=== PATIENT | male | born 1970 | race Caucasian/White ===

== ENCOUNTER → 2017-02-03 | Day surgery (SDC) | payer MEDICAID ==
[~2017-02-03] VITALS: Ht 170.2 cm; Wt 70.6 kg
[~2017-02-03] MED LIST: BENADRYL25 MG PO; BENADRYL50 MG PO; BIPAP INH; BUSPAR10 MG PO; CLEOCIN150 MG PO; DELTASONE20 MG PO; DUONEB INH; EFFEXOR XR75 MG PO; EPIPEN0.3 MG IM; FLOMAX0.4 MG PO; HUMULIN R100 UNIT/1 SUB-Q; IMITREX100 MG PO; LANOXIN (DIGI125 MCG PO; LANTUS100 UNIT/1 SUB-Q; NEURONTIN600 MG PO; NORCO 10-325 T1 EACH PO; OXCARBAZEPINE300 MG PO; OXYCONTIN20 MG PO; PERIDEX15 ML PO; PREDNISONE5 MG PO; PRILOSEC20 MG PO; PRINIVIL (ZESTRI5 MG PO; PROVENTIL OR V6.7 GM INH; QUETIAPINE FUM100 MG PO; ULTRAM50 MG PO; XARELTO20 MG PO
--- NOTE | ~2017-02-03 | OR ---
PATIENT'S NAME: ELIAZAR CHRIS [facility] AGE: 46 Y [address] ROOM: [place] [id number] LOCATION: GEND ADMIT DATE: 02/03/2017 OR/Procedure Report DISCHARGE DATE: FAMILY PHYSICIAN: Myke Wilson MD ATTENDING PHYSICIAN: Sharif Alfaro SURGEON: Sharif Alfaro MD BORING MACHINE OPERATOR: DATE OF PROCEDURE: 02/03/2017 PROCEDURE: Bronchoscopy. INDICATIONS FOR PROCEDURE: Tracheostomy change and granulation tissue ablation. PROCEDURE IN DETAIL: After the informed consent and proper time-out was called by the nursing staff, the patient was put to general anesthesia. Please refer to the Anesthesia record, Dr. Dre Perea. After the appropriate level of anesthesia was reached, the Olympus bronchoscope was introduced through the oral cavity into the tracheobronchial tree. There were no immediate complications. The patient tolerated the procedure well. FINDINGS: The vocal cords are moving with breathing. The trachea is slightly smaller in caliber than usual. There is a tracheostomy below in the trach that is in the tracheal cavity. Going past the trach, the gabriela is sharp and non-splayed. The right mainstem, right upper lobe, right bronchus intermedius, and right lower lobe are patent with no endobronchial lesions or secretions. The left lung, again the left upper lobe, and lower lobe are patent with no endobronchial disease. 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 After the initial inspection, there was no significant granulation tissue found. After that, the bronchoscope was withdrawn right over the bronchoscope, and then his trach was removed and then the new trach, size 6 [employer] custom-made trach, was inserted without any resistance. The patient tolerated the procedure well. There were no immediate complications. Thank you for allowing me to participate in the care of this patient. SHARIF ALFARO MD PATIENT'S NAME: CHRIS PEREA [facility] AGE: 46 Y [address] ROOM: [place] [address] LOCATION: GEND ADMIT DATE: 02/03/2017 OR/Procedure Report DISCHARGE DATE: FAMILY PHYSICIAN: Myke Wilson MD ATTENDING PHYSICIAN: Sharif Alfaro/yemil /[id number] d: 02/03/17 2306 t: 02/21/17 1043, OPERATIVE SUMMARY
== END | disposition disaster alternative care site (69) ==
LOC: GPOC 01-27 14:00 → GEND 13:22 → GPOC 13:30 → GEND 14:00 → GPOC 14:00
PROC: 0BJ08ZZ Inspection of Tracheobronchial Tree, Via Natural or Artificial Opening Endoscopic (ICD-10-PCS; principal; 2017-02-03)
DX: Z43.0 Encounter for attention to tracheostomy (principal); J39.8 Other specified diseases of upper respiratory tract; I11.0 Hypertensive heart disease with heart failure; I50.9 Heart failure, unspecified; E10.9 Type 1 diabetes mellitus without complications; I25.10 Atherosclerotic heart disease of native coronary artery without angina pectoris; I48.91 Unspecified atrial fibrillation; I25.2 Old myocardial infarction; J44.9 Chronic obstructive pulmonary disease, unspecified; J45.909 Unspecified asthma, uncomplicated; F31.9 Bipolar disorder, unspecified; F41.9 Anxiety disorder, unspecified; F43.10 Post-traumatic stress disorder, unspecified; G47.33 Obstructive sleep apnea (adult) (pediatric); E78.5 Hyperlipidemia, unspecified; F32.9 Major depressive disorder, single episode, unspecified; R56.9 Unspecified convulsions; Z90.49 Acquired absence of other specified parts of digestive tract; Z98.890 Other specified postprocedural states; Z98.52 Vasectomy status; Z88.0 Allergy status to penicillin; Z91.040 Latex allergy status; Z88.8 Allergy status to other drugs, medicaments and biological substances; Z79.4 Long term (current) use of insulin; Z79.899 Other long term (current) drug therapy
CPT/HCPCS: J2001; J2250; J7030

== ENCOUNTER → 2017-02-15 | Outpatient (CLI) | payer MEDICAID | END | disposition disaster alternative care site (69) | LOC: GAMB 03:41 | DX: I49.9 Cardiac arrhythmia, unspecified (principal); I47.1 Supraventricular tachycardia; I48.2 Chronic atrial fibrillation; B19.20 Unspecified viral hepatitis C without hepatic coma; R07.9 Chest pain, unspecified; R06.00 Dyspnea, unspecified; R06.2 Wheezing; Z86.73 Personal history of transient ischemic attack (TIA), and cerebral infarction without residual deficits; Z88.8 Allergy status to other drugs, medicaments and biological substances ==

== ENCOUNTER → 2017-03-05 | Outpatient (CLI) | payer MEDICAID | END | disposition disaster alternative care site (69) | LOC: GAMB 19:33 | DX: R07.89 Other chest pain (principal); I48.2 Chronic atrial fibrillation; I63.9 Cerebral infarction, unspecified; I47.1 Supraventricular tachycardia; B19.20 Unspecified viral hepatitis C without hepatic coma; Z79.899 Other long term (current) drug therapy; Z88.8 Allergy status to other drugs, medicaments and biological substances ==

== ENCOUNTER → 2017-03-31 | Outpatient (CLI) | payer MEDICAID | END | disposition disaster alternative care site (69) | LOC: GAMB 02:29 | DX: I49.9 Cardiac arrhythmia, unspecified (principal); I47.1 Supraventricular tachycardia; I48.2 Chronic atrial fibrillation; B19.20 Unspecified viral hepatitis C without hepatic coma; R07.9 Chest pain, unspecified; R05 Cough; R06.02 Shortness of breath; Z79.891 Long term (current) use of opiate analgesic; Z99.81 Dependence on supplemental oxygen; Z79.899 Other long term (current) drug therapy ==